=== PATIENT | female | born 1940 | race Caucasian/White ===

== ENCOUNTER 2020-12-10 13:02 | Inpatient (IN) ==
[2020-12-10] MEDS ORDERED: Ipratropium/Albuterol Neb 3 ML ONE ×2 (13:06)
[2020-12-10] MEDS ORDERED: methylPREDNISolone 125 MG/2 ML VIAL IVP ONE (13:12)
[2020-12-10] MEDS ORDERED: Ipratropium/Albuterol Neb 3 ML IH ONE (13:12)
[2020-12-10] MEDS ORDERED: levoFLOXacin 750 MG/150 ML 750 MG/150 ML BAG IVPB ONE (13:12)
[2020-12-10 13:41] LABS: Basophils # 0.1 K/mcL (0.0-0.2); Basophils % 0.7 %; Eosinophils % 0.1 %; Hematocrit 38.9 % (35.3-44.9); Hemoglobin 12.1 g/dL (11.5-15.4); Immature Granulocytes % 0.3 % (0-4); Lymphocytes # 0.9 K/mcL (0.6-4.6); Mean Corpuscular HGB Conc 31.1 g/dL (31.6-35.5); Mean Corpuscular Hemoglobin 24.5 pg (28.0-33.3); Mean Corpuscular Volume 78.7 fL (83.0-100.0); Mean Platelet Volume 8.5 fL (9.4-12.4); Monocytes % 14.1 %; Neutrophils # 4.8 K/mcL (1.6-8.9); Platelet Count 480 K/mcL (140-400); Red Blood Count 4.94 M/mcL (3.82-4.97); Red Cell Distribution Width 14.8 % (11.5-14.5); Segmented Neutrophils % 70.8 %; White Blood Count 6.7 K/mcL (4.3-11.1)
[2020-12-10 13:44] LABS: ABG Base Excess 9 mEq/L (-2 to 3); ABG HCO3 38 mEq/L (21-27); ABG Oxygen Saturation 100 % (95-98); ABG PCO2 74 mmHg (35-45); ABG PH 7.32 pH Units (7.32-7.45); ABG PO2 494 mmHg (85-104); ABG TCO2 40 mEq/L (20-26); Blood Gas VT 276 cc
[2020-12-10 13:53] LABS: INR 1.1; Prothrombin Time 13.1 Seconds (9.4-12.1)
[2020-12-10 14:14] LABS: Alanine Aminotransferase 15 Units/L (7-52); Albumin 3.5 g/dL (3.5-5.7); Albumin/Globulin Ratio 1.8 (1.1-2.2); Alkaline Phosphatase 83 Units/L (34-104); Aspartate Amino Transferase 19 Units/L (13-39); BUN/Creatinine Ratio 19 (6-26); Bilirubin,Direct 0.1 mg/dL (0.0-0.2); Bilirubin,Indirect 0.4 mg/dL (0.0-1.0); Bilirubin,Total 0.5 mg/dL (0.3-1.0); Blood Urea Nitrogen 13 mg/dL (8-23); Calcium 8.5 mg/dL (8.6-10.3); Carbon Dioxide 34 mEq/L (23-29); Chloride 81 mEq/L (98-107); Glucose 136 mg/dL (70-105); Osmolality,Calculated 254 (280-300); Potassium 4.4 mEq/L (3.5-5.1); Sodium 121 mEq/L (136-145); Total Protein 5.5 g/dL (6.4-8.9); Troponin I 0.04 ng/mL (< 0.04); eGFR For African Americans > 60 (> 60); eGFR For Non-African Americans > 60 (> 60)
[2020-12-10] MEDS ORDERED: Furosemide 40 MG/4 ML VIAL IVP ONE (16:26)
[2020-12-10 16:55] LABS: ABG Base Excess 9 mEq/L (-2 to 3); ABG HCO3 38 mEq/L (21-27); ABG Oxygen Saturation 100 % (95-98); ABG PCO2 74 mmHg (35-45); ABG PH 7.32 pH Units (7.32-7.45); ABG PO2 482 mmHg (85-104); ABG TCO2 40 mEq/L (20-26); Blood Gas VT 335 cc
[2020-12-10] MEDS ORDERED: MOM Conc 10 ML UD.LIQ PO PRN (17:11)
[2020-12-10] MEDS ORDERED: Acetaminophen 325 MG TABLET PO PRN (17:11)
[2020-12-10] MEDS ORDERED: Mag Hydrox/Al Hydrox/Simeth 30 ML UDC PO PRN (17:11)
[2020-12-10] MEDS ORDERED: Dextrose Gel 15 GM/37.5 ML TUBE PO PRN ×2 (17:11)
[2020-12-10] MEDS ORDERED: D5% in Water 1,000 ML IVC PRN (17:11)
[2020-12-10] MEDS ORDERED: Ondansetron 4 MG/2 ML VIAL IVP PRN (17:11)
[2020-12-10] MEDS ORDERED: Albuterol 2.5 MG/3 ML NEBULIZER IH PRN (17:11)
[2020-12-10] MEDS ORDERED: Naloxone 0.4 MG/ML INJ IVP PRN (17:11)
[2020-12-10] MEDS ORDERED: *HR* Dextrose 50 % in Water (Vial) 50 ML VIAL IVP PRN (17:11)
[2020-12-10 17:41] LABS: Bilirubin,Urine Negative (Negative); Blood,Urine Negative (Negative); Clarity,Urine Clear (Clear); Color,Urine Light-Yellow (Yellow); Glucose,Urine (UA) Normal (Normal); Ketones,Urine Negative (Negative); Leukocyte Esterase,Urine Negative (Negative); Nitrite,Urine Negative (Negative); PH,Urine 6.5 pH Units (5.0-8.0); Protein,Urine Trace mg/dL (Neg-Trace); Specific Gravity,Urine 1.015 (1.010-1.025); Urobilinogen,Urine Normal (Normal)
[2020-12-10] MEDS ORDERED: Insulin LISPRO 300 UNITS/3 ML VIAL SUBQ SCH (18:00)
[2020-12-10] MEDS: MethylPREDNISolone 40 MG/ML VIAL IVP SCH ×2 (20:05→23:48)
[2020-12-10] MEDS: Mirtazapine 15 MG TABLET PO SCH (20:08)
[2020-12-10 21:41] LABS: BUN/Creatinine Ratio 19 (6-26); Blood Urea Nitrogen 12 mg/dL (8-23); Calcium 8.6 mg/dL (8.6-10.3); Carbon Dioxide 34 mEq/L (23-29); Chloride 82 mEq/L (98-107); Glucose 175 mg/dL (70-105); Osmolality,Calculated 258 (280-300); Potassium 4.4 mEq/L (3.5-5.1); Sodium 122 mEq/L (136-145); eGFR For African Americans > 60 (> 60); eGFR For Non-African Americans > 60 (> 60)
[2020-12-10] MEDS: Ipratropium/Albuterol Neb 3 ML IH SCH (22:31)
[2020-12-10] MEDS: Budesonide/Formoterol 160/4.5 1 PUFF INH IH SCH (22:31)
[2020-12-11 03:22] LABS: Hematocrit 38.4 % (35.3-44.9); Mean Corpuscular HGB Conc 31.3 g/dL (31.6-35.5); Mean Corpuscular Hemoglobin 24.7 pg (28.0-33.3); Mean Platelet Volume 8.7 fL (9.4-12.4); Platelet Count 408 K/mcL (140-400); Red Blood Count 4.86 M/mcL (3.82-4.97); Red Cell Distribution Width 14.8 % (11.5-14.5)
[2020-12-11 03:24] LABS: White Blood Count 2.9 K/mcL (4.3-11.1)
[2020-12-11 03:36] LABS: BUN/Creatinine Ratio 20 (6-26); Blood Urea Nitrogen 14 mg/dL (8-23); Calcium 8.5 mg/dL (8.6-10.3); Carbon Dioxide 34 mEq/L (23-29); Chloride 83 mEq/L (98-107); Glucose 264 mg/dL (70-105); Magnesium 1.3 mg/dL (1.6-2.6); Osmolality,Calculated 266 (280-300); Potassium 4.5 mEq/L (3.5-5.1); Sodium 123 mEq/L (136-145); eGFR For African Americans > 60 (> 60); eGFR For Non-African Americans > 60 (> 60)
[2020-12-11] MEDS: Ipratropium/Albuterol Neb 3 ML IH SCH ×4 (04:56→23:27)
[2020-12-11 05:08] LABS: ABG Base Excess 11 mEq/L (-2 to 3); ABG HCO3 39 mEq/L (21-27); ABG Oxygen Saturation 81 % (95-98); ABG PCO2 69 mmHg (35-45); ABG PH 7.36 pH Units (7.32-7.45); ABG PO2 49 mmHg (85-104); ABG TCO2 41 mEq/L (20-26)
[2020-12-11] MEDS: *HR* Enoxaparin 40 MG/0.4 ML SYRINGE SQ SCH (05:32)
[2020-12-11] MEDS: MethylPREDNISolone 40 MG/ML VIAL IVP SCH ×3 (05:32→17:27)
[2020-12-11] MEDS ORDERED: Furosemide 40 MG/4 ML VIAL IVP ONE (08:07)
[2020-12-11] MEDS ORDERED: levoFLOXacin 750 MG/150 ML 750 MG/150 ML BAG IVPB SCH (09:00)
[2020-12-11] MEDS: amLODIPine 5 MG TABLET PO SCH (10:01)
[2020-12-11] MEDS: lisinopriL 20 MG TABLET PO SCH (10:01)
[2020-12-11] MEDS: Insulin LISPRO 300 UNITS/3 ML VIAL SUBQ SCH ×4 (10:02→20:43)
[2020-12-11] MEDS: Budesonide/Formoterol 160/4.5 1 PUFF INH IH SCH ×2 (10:42→23:27)
[2020-12-11] MEDS: Mirtazapine 15 MG TABLET PO SCH (20:42)
[2020-12-12] MEDS: MethylPREDNISolone 40 MG/ML VIAL IVP SCH ×4 (00:20→18:29)
[2020-12-12] MEDS ORDERED: *HR* LORazepam 0.5 MG TABLET PO ONE (01:27)
[2020-12-12 02:49] LABS: ABG Base Excess 11 mEq/L (-2 to 3); ABG HCO3 38 mEq/L (21-27); ABG Oxygen Saturation 92 % (95-98); ABG PCO2 59 mmHg (35-45); ABG PH 7.41 pH Units (7.32-7.45); ABG PO2 64 mmHg (85-104); ABG TCO2 40 mEq/L (20-26)
[2020-12-12] MEDS ORDERED: *HR* LORazepam 2 MG/ML VIAL IVP ONE (03:03)
[2020-12-12] MEDS: Ipratropium/Albuterol Neb 3 ML IH SCH ×4 (04:07→22:28)
[2020-12-12 04:14] LABS: Hematocrit 37.8 % (35.3-44.9); Hemoglobin 11.7 g/dL (11.5-15.4); Mean Corpuscular Hemoglobin 24.7 pg (28.0-33.3); Mean Corpuscular Volume 79.9 fL (83.0-100.0); Platelet Count 450 K/mcL (140-400); Red Blood Count 4.73 M/mcL (3.82-4.97); Red Cell Distribution Width 15.1 % (11.5-14.5)
[2020-12-12 04:16] LABS: White Blood Count 9.7 K/mcL (4.3-11.1)
[2020-12-12 04:33] LABS: BUN/Creatinine Ratio 31 (6-26); Blood Urea Nitrogen 22 mg/dL (8-23); Calcium 8.6 mg/dL (8.6-10.3); Carbon Dioxide 37 mEq/L (23-29); Chloride 84 mEq/L (98-107); Glucose 200 mg/dL (70-105); Magnesium 1.8 mg/dL (1.6-2.6); Osmolality,Calculated 271 (280-300); Potassium 4.8 mEq/L (3.5-5.1); Sodium 126 mEq/L (136-145); eGFR For African Americans > 60 (> 60); eGFR For Non-African Americans > 60 (> 60)
[2020-12-12] MEDS: *HR* Enoxaparin 40 MG/0.4 ML SYRINGE SQ SCH (05:14)
[2020-12-12] MEDS: Insulin LISPRO 300 UNITS/3 ML VIAL SUBQ SCH ×4 (08:45→20:29)
[2020-12-12] MEDS: amLODIPine 5 MG TABLET PO SCH (08:45)
[2020-12-12] MEDS: lisinopriL 20 MG TABLET PO SCH (08:46)
[2020-12-12] MEDS: Budesonide/Formoterol 160/4.5 1 PUFF INH IH SCH ×2 (10:32→22:28)
[2020-12-12] MEDS ORDERED: levoFLOXacin 750 MG/150 ML 750 MG/150 ML BAG IVPB SCH (13:00)
[2020-12-12] MEDS: Mirtazapine 15 MG TABLET PO SCH (20:29)
[2020-12-12] MEDS: Insulin DETEMIR 100 UNIT/ML X5UNITS SUBQ SCH (20:29)
[2020-12-13] MEDS: Ipratropium/Albuterol Neb 3 ML IH SCH ×4 (04:30→22:10)
[2020-12-13] MEDS: *HR* Enoxaparin 40 MG/0.4 ML SYRINGE SQ SCH (05:24)
[2020-12-13] MEDS: MethylPREDNISolone 40 MG/ML VIAL IVP SCH ×2 (05:25→17:08)
[2020-12-13] MEDS: amLODIPine 5 MG TABLET PO SCH (09:48)
[2020-12-13] MEDS: lisinopriL 20 MG TABLET PO SCH (09:48)
[2020-12-13] MEDS: Insulin LISPRO 300 UNITS/3 ML VIAL SUBQ SCH ×4 (09:48→21:25)
[2020-12-13] MEDS: Budesonide/Formoterol 160/4.5 1 PUFF INH IH SCH ×2 (10:00→22:10)
[2020-12-13] MEDS: Mirtazapine 15 MG TABLET PO SCH (21:24)
[2020-12-13] MEDS: Insulin DETEMIR 100 UNIT/ML X5UNITS SUBQ SCH (21:26)
[2020-12-14] MEDS: Ipratropium/Albuterol Neb 3 ML IH SCH ×4 (04:19→22:13)
[2020-12-14] MEDS: *HR* Enoxaparin 40 MG/0.4 ML SYRINGE SQ SCH (05:32)
[2020-12-14 05:36] LABS: Hematocrit 39.7 % (35.3-44.9); Hemoglobin 11.8 g/dL (11.5-15.4); Mean Corpuscular HGB Conc 29.7 g/dL (31.6-35.5); Mean Corpuscular Hemoglobin 23.8 pg (28.0-33.3); Mean Platelet Volume 8.5 fL (9.4-12.4); Platelet Count 424 K/mcL (140-400); Red Blood Count 4.96 M/mcL (3.82-4.97); Red Cell Distribution Width 15.7 % (11.5-14.5)
[2020-12-14 05:54] LABS: BUN/Creatinine Ratio 37 (6-26); Blood Urea Nitrogen 28 mg/dL (8-23); Calcium 8.8 mg/dL (8.6-10.3); Carbon Dioxide 36 mEq/L (23-29); Chloride 83 mEq/L (98-107); Glucose 276 mg/dL (70-105); Magnesium 1.7 mg/dL (1.6-2.6); Osmolality,Calculated 271 (280-300); Sodium 123 mEq/L (136-145); eGFR For African Americans > 60 (> 60); eGFR For Non-African Americans > 60 (> 60)
[2020-12-14] MEDS: predniSONE 20 MG TABLET PO SCH (07:33)
[2020-12-14] MEDS: amLODIPine 5 MG TABLET PO SCH (07:33)
[2020-12-14] MEDS: Insulin LISPRO 300 UNITS/3 ML VIAL SUBQ SCH ×4 (07:34→20:07)
[2020-12-14] MEDS: lisinopriL 20 MG TABLET PO SCH (07:34)
[2020-12-14] MEDS: Budesonide/Formoterol 160/4.5 1 PUFF INH IH SCH ×2 (07:52→22:13)
[2020-12-14] MEDS ORDERED: levoFLOXacin 750 MG TABLET PO ONE (13:00)
[2020-12-14] MEDS ORDERED: *HR* LORazepam 2 MG/ML VIAL IVP ONE (13:58)
[2020-12-14 14:55] LABS: ABG Base Excess 12 mEq/L (-2 to 3); ABG HCO3 40 mEq/L (21-27); ABG Oxygen Saturation 88 % (95-98); ABG PCO2 62 mmHg (35-45); ABG PH 7.41 pH Units (7.32-7.45); ABG PO2 55 mmHg (85-104); ABG TCO2 42 mEq/L (20-26)
[2020-12-14] MEDS: Mirtazapine 15 MG TABLET PO SCH (20:07)
[2020-12-14] MEDS: Insulin DETEMIR 100 UNIT/ML X5UNITS SUBQ SCH (20:07)
[2020-12-14] MEDS: *HR* LORazepam 2 MG/ML VIAL IVP PRN (22:26)
[2020-12-15] MEDS: Ipratropium/Albuterol Neb 3 ML IH SCH ×3 (03:27→15:43)
[2020-12-15] MEDS: *HR* Enoxaparin 40 MG/0.4 ML SYRINGE SQ SCH (05:36)
[2020-12-15 06:43] LABS: Hematocrit 40.1 % (35.3-44.9); Mean Corpuscular HGB Conc 29.9 g/dL (31.6-35.5); Mean Corpuscular Hemoglobin 23.6 pg (28.0-33.3); Mean Corpuscular Volume 78.9 fL (83.0-100.0); Mean Platelet Volume 8.5 fL (9.4-12.4); Platelet Count 409 K/mcL (140-400); Red Blood Count 5.08 M/mcL (3.82-4.97); Red Cell Distribution Width 15.5 % (11.5-14.5); White Blood Count 9.8 K/mcL (4.3-11.1)
[2020-12-15 07:05] LABS: BUN/Creatinine Ratio 30 (6-26); Blood Urea Nitrogen 22 mg/dL (8-23); Calcium 8.7 mg/dL (8.6-10.3); Carbon Dioxide 38 mEq/L (23-29); Chloride 88 mEq/L (98-107); Glucose 102 mg/dL (70-105); Osmolality,Calculated 272 (280-300); Potassium 4.5 mEq/L (3.5-5.1); Sodium 129 mEq/L (136-145); eGFR For African Americans > 60 (> 60); eGFR For Non-African Americans > 60 (> 60)
[2020-12-15] MEDS: Insulin LISPRO 300 UNITS/3 ML VIAL SUBQ SCH ×3 (08:35→16:34)
[2020-12-15] MEDS: predniSONE 20 MG TABLET PO SCH (08:39)
[2020-12-15] MEDS: lisinopriL 20 MG TABLET PO SCH (08:39)
[2020-12-15] MEDS: amLODIPine 5 MG TABLET PO SCH (08:39)
[2020-12-15] MEDS: Furosemide 20 MG TABLET PO SCH ×3 (08:39→17:27)
[2020-12-15] MEDS: Budesonide/Formoterol 160/4.5 1 PUFF INH IH SCH (10:27)
[2020-12-15 16:31] VITALS: BP 122/56
[2020-12-15 16:51] LABS: Influenza A PCR Negative (Negative); Influenza B PCR Negative (Negative); Resp. Syncytial Virus PCR Negative (Negative)
[2020-12-15 16:52] LABS: SARS-CoV-2 by PCR (In House) Negative (Negative)
[2020-12-15] MEDS: *HR* LORazepam 2 MG/ML VIAL IVP PRN (17:27)
== END 2020-12-15 18:00 | DRG 291 ==
LOC: 2ANU 13:02 → EMEROOARM 13:02 → SUATTDRO 17:52 → 2ANU 19:25
PROVIDERS: ADMIT Internal Medicine; ATTEND Internal Medicine

== ENCOUNTER 2021-01-03 11:10 | Observation (INO) ==
[2021-01-03 12:07] LABS: BUN/Creatinine Ratio 17 (6-26); Blood Urea Nitrogen 12 mg/dL (8-23); Calcium 9.3 mg/dL (8.6-10.3); Carbon Dioxide 34 mEq/L (23-29); Chloride 93 mEq/L (98-107); Glucose 106 mg/dL (70-105); Osmolality,Calculated 276 (280-300); Potassium 3.8 mEq/L (3.5-5.1); Sodium 133 mEq/L (136-145); eGFR For African Americans > 60 (> 60); eGFR For Non-African Americans > 60 (> 60)
[2021-01-03 12:14] LABS: Troponin I 0.06 ng/mL (< 0.04)
[2021-01-03] MEDS ORDERED: Aspirin 325 MG TABLET PO ONE (12:22)
[2021-01-03] MEDS ORDERED: Furosemide 40 MG/4 ML VIAL IVP ONE (12:22)
[2021-01-03 12:30] LABS: Basophils % 0.8 %; Eosinophils # 0.2 K/mcL (0.0-0.6); Eosinophils % 3.1 %; Hematocrit 36.3 % (35.3-44.9); Hemoglobin 11.1 g/dL (11.5-15.4); Immature Granulocytes % 0.2 % (0-4); Lymphocytes % 19.6 %; Mean Corpuscular HGB Conc 30.6 g/dL (31.6-35.5); Mean Corpuscular Hemoglobin 24.3 pg (28.0-33.3); Mean Corpuscular Volume 79.4 fL (83.0-100.0); Mean Platelet Volume 8.9 fL (9.4-12.4); Monocytes # 0.5 K/mcL (0.0-1.3); Monocytes % 10.6 %; Neutrophils # 3.3 K/mcL (1.6-8.9); Platelet Count 336 K/mcL (140-400); Red Blood Count 4.57 M/mcL (3.82-4.97); Red Cell Distribution Width 18.9 % (11.5-14.5); Segmented Neutrophils % 65.7 %; White Blood Count 5.1 K/mcL (4.3-11.1)
[2021-01-03] MEDS ORDERED: *HR* LORazepam 0.5 MG TABLET PO PRN (13:38)
[2021-01-03] MEDS ORDERED: Albuterol 2.5 MG/3 ML NEBULIZER IH PRN (13:41)
[2021-01-03] MEDS ORDERED: Acetaminophen 325 MG TABLET PO PRN (13:44)
[2021-01-03] MEDS ORDERED: D5% in Water 1,000 ML IVC PRN (13:44)
[2021-01-03] MEDS ORDERED: Dextrose Gel 15 GM/37.5 ML TUBE PO PRN ×2 (13:44)
[2021-01-03] MEDS ORDERED: *HR* Dextrose 50 % in Water (Vial) 50 ML VIAL IVP PRN (13:44)
[2021-01-03] MEDS ORDERED: Naloxone 0.4 MG/ML INJ IVP PRN (13:44)
[2021-01-03] MEDS: Insulin LISPRO 300 UNITS/3 ML VIAL SUBQ SCH ×2 (16:50→19:55)
[2021-01-03] MEDS: *HR* Heparin 5,000 UNIT/ML VIAL SQ SCH (18:10)
[2021-01-03 18:51] LABS: Adenovirus Not Detected (Not Detect); Bordetella Pertussis Not Detected (Not Detect); Chlamydophila pneumoniae Not Detected (Not Detect); Coronavirus 229E Not Detected (Not Detect); Coronavirus HKU1 Not Detected (Not Detect); Coronavirus NL63 Not Detected (Not Detect); Coronavirus OC43 Not Detected (Not Detect); Human Metapneumovirus Not Detected (Not Detect); Human Rhinovirus/Enterovirus Not Detected (Not Detect); Influenza A Subtype 2009 H1 Not Detected (Not Detect); Influenza B Not Detected (Not Detect); Mycoplasma pneumoniae Not Detected (Not Detect); Parainfluenza Virus 1 Not Detected (Not Detect); Parainfluenza Virus 2 Not Detected (Not Detect); Parainfluenza Virus 3 Not Detected (Not Detect); Parainfluenza Virus 4 Not Detected (Not Detect); Respiratory Syncytial Virus Not Detected (Not Detect); SARS-CoV-2 Not Detected (Not Detect)
[2021-01-03] MEDS: Mirtazapine 15 MG TABLET PO SCH (20:21)
[2021-01-03] MEDS: Budesonide/Formoterol 160/4.5 1 PUFF INH IH SCH (20:32)
[2021-01-03] MEDS ORDERED: Insulin DETEMIR 100 UNIT/ML X5UNITS SUBQ SCH (21:00)
[2021-01-04 02:48] LABS: Basophils # 0.1 K/mcL (0.0-0.2); Basophils % 1.3 %; Eosinophils # 0.2 K/mcL (0.0-0.6); Eosinophils % 2.9 %; Hematocrit 36.7 % (35.3-44.9); Hemoglobin 11.1 g/dL (11.5-15.4); Immature Granulocytes % 0.2 % (0-4); Lymphocytes # 1.1 K/mcL (0.6-4.6); Lymphocytes % 21.7 %; Mean Corpuscular HGB Conc 30.2 g/dL (31.6-35.5); Mean Corpuscular Hemoglobin 24.1 pg (28.0-33.3); Mean Corpuscular Volume 79.8 fL (83.0-100.0); Mean Platelet Volume 9.7 fL (9.4-12.4); Monocytes # 0.7 K/mcL (0.0-1.3); Monocytes % 13.1 %; Neutrophils # 3.2 K/mcL (1.6-8.9); Platelet Count 395 K/mcL (140-400); Red Cell Distribution Width 18.8 % (11.5-14.5); Segmented Neutrophils % 60.8 %; White Blood Count 5.3 K/mcL (4.3-11.1)
[2021-01-04 03:09] LABS: BUN/Creatinine Ratio 19 (6-26); Blood Urea Nitrogen 15 mg/dL (8-23); Calcium 9.1 mg/dL (8.6-10.3); Carbon Dioxide 36 mEq/L (23-29); Chloride 95 mEq/L (98-107); Glucose 36 mg/dL (70-105); Osmolality,Calculated 281 (280-300); Sodium 137 mEq/L (136-145); eGFR For African Americans > 60 (> 60); eGFR For Non-African Americans > 60 (> 60)
[2021-01-04] MEDS: *HR* Heparin 5,000 UNIT/ML VIAL SQ SCH ×2 (05:32→17:30)
[2021-01-04] MEDS ORDERED: Furosemide 40 MG/4 ML VIAL IVP SCH (09:00)
[2021-01-04] MEDS: Insulin LISPRO 300 UNITS/3 ML VIAL SUBQ SCH ×4 (09:38→20:20)
[2021-01-04] MEDS: Budesonide/Formoterol 160/4.5 1 PUFF INH IH SCH ×2 (09:40→21:36)
[2021-01-04] MEDS: lisinopriL 20 MG TABLET PO SCH (09:46)
[2021-01-04] MEDS: Aspirin 81 MG TAB.CHEW PO SCH (09:47)
[2021-01-04] MEDS: amLODIPine 5 MG TABLET PO SCH (09:47)
[2021-01-04] MEDS: Furosemide 40 MG/4 ML VIAL IVP SCH ×2 (12:01→16:59)
[2021-01-04] MEDS: Mirtazapine 15 MG TABLET PO SCH (20:20)
[2021-01-05 04:05] LABS: Basophils % 0.9 %; Eosinophils # 0.1 K/mcL (0.0-0.6); Eosinophils % 2.8 %; Hematocrit 33.9 % (35.3-44.9); Hemoglobin 10.4 g/dL (11.5-15.4); Lymphocytes # 1.3 K/mcL (0.6-4.6); Lymphocytes % 31.2 %; Mean Corpuscular HGB Conc 30.7 g/dL (31.6-35.5); Mean Corpuscular Hemoglobin 24.1 pg (28.0-33.3); Mean Corpuscular Volume 78.5 fL (83.0-100.0); Mean Platelet Volume 9.8 fL (9.4-12.4); Monocytes # 0.7 K/mcL (0.0-1.3); Monocytes % 15.6 %; Neutrophils # 2.1 K/mcL (1.6-8.9); Platelet Count 384 K/mcL (140-400); Red Blood Count 4.32 M/mcL (3.82-4.97); Red Cell Distribution Width 18.8 % (11.5-14.5); Segmented Neutrophils % 49.5 %; White Blood Count 4.3 K/mcL (4.3-11.1)
[2021-01-05 04:24] LABS: BUN/Creatinine Ratio 22 (6-26); Blood Urea Nitrogen 20 mg/dL (8-23); Calcium 8.8 mg/dL (8.6-10.3); Carbon Dioxide 34 mEq/L (23-29); Chloride 97 mEq/L (98-107); Glucose 119 mg/dL (70-105); Magnesium 1.8 mg/dL (1.6-2.6); Osmolality,Calculated 288 (280-300); Phosphorous 4.1 mg/dL (2.7-4.5); Potassium 3.5 mEq/L (3.5-5.1); Sodium 137 mEq/L (136-145); eGFR For African Americans > 60 (> 60); eGFR For Non-African Americans > 60 (> 60)
[2021-01-05] MEDS: *HR* Heparin 5,000 UNIT/ML VIAL SQ SCH ×2 (05:03→17:33)
[2021-01-05] MEDS: Insulin LISPRO 300 UNITS/3 ML VIAL SUBQ SCH ×4 (07:43→20:55)
[2021-01-05] MEDS: Furosemide 40 MG/4 ML VIAL IVP SCH ×2 (07:54→17:35)
[2021-01-05] MEDS: lisinopriL 20 MG TABLET PO SCH (07:54)
[2021-01-05] MEDS: Aspirin 81 MG TAB.CHEW PO SCH (07:54)
[2021-01-05] MEDS: amLODIPine 5 MG TABLET PO SCH (07:54)
[2021-01-05] MEDS: Budesonide/Formoterol 160/4.5 1 PUFF INH IH SCH ×2 (08:16→22:26)
[2021-01-05] MEDS ORDERED: Ipratropium/Albuterol Neb 3 ML IH PRN (09:01)
[2021-01-05] MEDS ORDERED: Albuterol 2.5 MG/3 ML NEBULIZER IH PRN (09:01)
[2021-01-05] MEDS: Mirtazapine 15 MG TABLET PO SCH (21:06)
[2021-01-06] MEDS: *HR* Heparin 5,000 UNIT/ML VIAL SQ SCH ×2 (06:48→17:45)
[2021-01-06] MEDS: Furosemide 40 MG TABLET PO SCH ×3 (08:13→17:44)
[2021-01-06] MEDS: Insulin LISPRO 300 UNITS/3 ML VIAL SUBQ SCH ×4 (08:15→21:52)
[2021-01-06] MEDS: lisinopriL 20 MG TABLET PO SCH (08:40)
[2021-01-06] MEDS: Aspirin 81 MG TAB.CHEW PO SCH (08:41)
[2021-01-06] MEDS: amLODIPine 5 MG TABLET PO SCH (08:42)
[2021-01-06] MEDS: Tiotropium 10 INH DOSE IH SCH (10:01)
[2021-01-06] MEDS: Budesonide/Formoterol 160/4.5 1 PUFF INH IH SCH ×2 (10:01→19:53)
[2021-01-06] MEDS: Mirtazapine 15 MG TABLET PO SCH (21:54)
[2021-01-07 05:08] LABS: Basophils # 0.1 K/mcL (0.0-0.2); Basophils % 0.9 %; Eosinophils # 0.2 K/mcL (0.0-0.6); Eosinophils % 2.7 %; Hemoglobin 11.2 g/dL (11.5-15.4); Immature Granulocytes % 0.2 % (0-4); Lymphocytes # 0.9 K/mcL (0.6-4.6); Lymphocytes % 16.5 %; Mean Corpuscular HGB Conc 30.3 g/dL (31.6-35.5); Mean Corpuscular Hemoglobin 23.6 pg (28.0-33.3); Mean Corpuscular Volume 78.1 fL (83.0-100.0); Mean Platelet Volume 9.6 fL (9.4-12.4); Monocytes # 0.7 K/mcL (0.0-1.3); Monocytes % 13.3 %; Neutrophils # 3.7 K/mcL (1.6-8.9); Platelet Count 395 K/mcL (140-400); Red Blood Count 4.74 M/mcL (3.82-4.97); Red Cell Distribution Width 19.6 % (11.5-14.5); Segmented Neutrophils % 66.4 %; White Blood Count 5.6 K/mcL (4.3-11.1)
[2021-01-07 05:28] LABS: BUN/Creatinine Ratio 25 (6-26); Blood Urea Nitrogen 20 mg/dL (8-23); Calcium 8.8 mg/dL (8.6-10.3); Carbon Dioxide 34 mEq/L (23-29); Chloride 97 mEq/L (98-107); Glucose 134 mg/dL (70-105); Magnesium 1.8 mg/dL (1.6-2.6); Osmolality,Calculated 291 (280-300); Potassium 3.3 mEq/L (3.5-5.1); Sodium 138 mEq/L (136-145); eGFR For African Americans > 60 (> 60); eGFR For Non-African Americans > 60 (> 60)
[2021-01-07] MEDS: *HR* Heparin 5,000 UNIT/ML VIAL SQ SCH (06:18)
[2021-01-07] MEDS: Insulin LISPRO 300 UNITS/3 ML VIAL SUBQ SCH ×2 (08:16→12:11)
[2021-01-07] MEDS: Aspirin 81 MG TAB.CHEW PO SCH (08:23)
[2021-01-07] MEDS: amLODIPine 5 MG TABLET PO SCH (08:24)
[2021-01-07] MEDS: lisinopriL 20 MG TABLET PO SCH (08:27)
[2021-01-07] MEDS: Furosemide 40 MG TABLET PO SCH (08:27)
[2021-01-07] MEDS: Potassium Chloride Elixir 20 MEQ/15 ML UDC PO SCH ×2 (08:35→12:06)
[2021-01-07] MEDS: Tiotropium 10 INH DOSE IH SCH (10:39)
[2021-01-07] MEDS: Budesonide/Formoterol 160/4.5 1 PUFF INH IH SCH (10:39)
[2021-01-07 15:09] VITALS: BP 138/54
== END 2021-01-07 17:45 | disposition home health service (06) ==
LOC: EMEROOARM 11:10 → 3ANU 11:10 → SUATTDRO 13:09 → 3ANU 14:05
PROVIDERS: ADMIT Internal Medicine; ATTEND Internal Medicine

== ENCOUNTER 2021-02-15 13:48 | Inpatient (IN) ==
[2021-02-15] MEDS ORDERED: Doxycycline 100 MG in 0.9 % Sodium Chloride Mini Bag 100 ML IVPB STA (15:48)
[2021-02-15 16:01] LABS: Hemoglobin 11.2 g/dL (11.5-15.4); Mean Corpuscular Hemoglobin 24.8 pg (28.0-33.3); Red Blood Count 4.51 M/mcL (3.82-4.97); Red Cell Distribution Width 21.3 % (11.5-14.5)
[2021-02-15 16:03] LABS: Hematocrit 35.7 % (35.3-44.9); Mean Corpuscular HGB Conc 31.4 g/dL (31.6-35.5); Mean Corpuscular Volume 79.2 fL (83.0-100.0); Mean Platelet Volume 9.2 fL (9.4-12.4); Platelet Count 276 K/mcL (140-400); White Blood Count 27.8 K/mcL (4.3-11.1)
[2021-02-15 16:16] LABS: BUN/Creatinine Ratio 26 (6-26); Blood Urea Nitrogen 22 mg/dL (8-23); Calcium 8.6 mg/dL (8.6-10.3); Carbon Dioxide 31 mEq/L (23-29); Chloride 88 mEq/L (98-107); Glucose 317 mg/dL (70-105); Osmolality,Calculated 279 (280-300); Potassium 3.6 mEq/L (3.5-5.1); Sodium 127 mEq/L (136-145); eGFR For African Americans > 60 (> 60); eGFR For Non-African Americans > 60 (> 60)
[2021-02-15 16:41] LABS: Lymphocytes # 0.6 K/mcL (0.6-4.6); Monocytes # 0.6 K/mcL (0.0-1.3); Neutrophils # 26.7 K/mcL (1.6-8.9)
[2021-02-15 16:42] LABS: Anisocytosis 1+ (Not Present); Large Platelets Present (Not Present); Platelet Estimate Normal (Normal)
[2021-02-15] MEDS ORDERED: Naloxone 0.4 MG/ML INJ IVP PRN (16:59)
[2021-02-15] MEDS ORDERED: Ondansetron 4 MG/2 ML VIAL IVP PRN (16:59)
[2021-02-15] MEDS ORDERED: MOM Conc 10 ML UD.LIQ PO PRN (16:59)
[2021-02-15] MEDS ORDERED: Dextrose Gel 15 GM/37.5 ML TUBE PO PRN ×2 (17:06)
[2021-02-15] MEDS ORDERED: *HR* Dextrose 50 % in Water (Vial) 50 ML VIAL IVP PRN (17:06)
[2021-02-15] MEDS ORDERED: D5% in Water 1,000 ML IVC PRN (17:06)
[2021-02-15] MEDS ORDERED: Ipratropium/Albuterol Neb 3 ML IH PRN (17:07)
[2021-02-15] MEDS: Budesonide/Formoterol 160/4.5 1 PUFF INH IH SCH (19:50)
[2021-02-15] MEDS: Mirtazapine 15 MG TABLET PO SCH (22:13)
[2021-02-15] MEDS: Piperacillin/Tazobactam 3.375 GM in 0.9 % Sodium Chloride Mini Bag 100 ML IVPB SCH (22:13)
[2021-02-15] MEDS: Insulin LISPRO 300 UNITS/3 ML VIAL SUBQ SCH (22:20)
[2021-02-15] MEDS: Melatonin 3 MG TABLET PO PRN (23:32)
[2021-02-16] MEDS: Piperacillin/Tazobactam 3.375 GM in 0.9 % Sodium Chloride Mini Bag 100 ML IVPB SCH ×3 (02:57→16:50)
[2021-02-16 06:09] LABS: Basophils % 0.1 %; Eosinophils % 0.1 %; Hemoglobin 10.6 g/dL (11.5-15.4); Immature Granulocytes % 1.9 % (0-4); Lymphocytes # 0.2 K/mcL (0.6-4.6); Mean Corpuscular HGB Conc 31.2 g/dL (31.6-35.5); Mean Corpuscular Hemoglobin 24.7 pg (28.0-33.3); Mean Corpuscular Volume 79.1 fL (83.0-100.0); Mean Platelet Volume 9.9 fL (9.4-12.4); Monocytes # 0.7 K/mcL (0.0-1.3); Monocytes % 4.3 %; Neutrophils # 15.9 K/mcL (1.6-8.9); Platelet Count 237 K/mcL (140-400); Red Cell Distribution Width 21.5 % (11.5-14.5); Segmented Neutrophils % 92.6 %; White Blood Count 17.2 K/mcL (4.3-11.1)
[2021-02-16 06:27] LABS: Anisocytosis 1+ (Not Present); Hypochromasia Present (Not Present); Platelet Estimate Normal (Normal)
[2021-02-16 06:33] LABS: BUN/Creatinine Ratio 27 (6-26); Blood Urea Nitrogen 27 mg/dL (8-23); Calcium 8.6 mg/dL (8.6-10.3); Carbon Dioxide 29 mEq/L (23-29); Chloride 92 mEq/L (98-107); Glucose 171 mg/dL (70-105); Magnesium 1.3 mg/dL (1.6-2.6); Osmolality,Calculated 279 (280-300); Phosphorous 2.4 mg/dL (2.7-4.5); Potassium 3.3 mEq/L (3.5-5.1); Sodium 130 mEq/L (136-145); eGFR For African Americans > 60 (> 60); eGFR For Non-African Americans 54 (> 60)
[2021-02-16] MEDS ORDERED: Potassium Chloride Elixir 20 MEQ/15 ML UDC PO ONE (07:49)
[2021-02-16] MEDS: Budesonide/Formoterol 160/4.5 1 PUFF INH IH SCH ×2 (07:56→20:15)
[2021-02-16] MEDS: Tiotropium 10 INH DOSE IH SCH (07:56)
[2021-02-16 09:01] LABS: Estimated Average Glucose 189 mg/dl; Hemoglobin A1C 8.2 %
[2021-02-16] MEDS: Insulin LISPRO 300 UNITS/3 ML VIAL SUBQ SCH ×4 (09:38→20:27)
[2021-02-16] MEDS: predniSONE 20 MG TABLET PO SCH (09:39)
[2021-02-16 18:39] LABS: Bilirubin,Urine Negative (Negative); Blood,Urine Small (Negative); Budding Yeast,Urine Few per hpf (None Seen); Calcium Oxalate Crystals,Urine Present; Clarity,Urine Turbid (Clear); Color,Urine Yellow (Yellow); Glucose,Urine (UA) Normal (Normal); Ketones,Urine Negative (Negative); Leukocyte Esterase,Urine Trace (Negative); Nitrite,Urine Negative (Negative); Protein,Urine 50 mg/dL (Neg-Trace); Specific Gravity,Urine 1.024 (1.010-1.025); Squamous Epithelial Cell,Urine Few per hpf (None-Few); Urobilinogen,Urine Normal (Normal)
[2021-02-16] MEDS: Acetaminophen 325 MG TABLET PO PRN (19:35)
[2021-02-16] MEDS: Mirtazapine 15 MG TABLET PO SCH (20:27)
[2021-02-17] MEDS: Piperacillin/Tazobactam 3.375 GM in 0.9 % Sodium Chloride Mini Bag 100 ML IVPB SCH ×3 (02:16→16:25)
[2021-02-17 06:26] LABS: Basophils % 0.1 %; Eosinophils # 0.1 K/mcL (0.0-0.6); Eosinophils % 0.4 %; Hemoglobin 10.8 g/dL (11.5-15.4); Immature Granulocytes % 0.5 % (0-4); Lymphocytes # 0.4 K/mcL (0.6-4.6); Lymphocytes % 2.5 %; Mean Corpuscular HGB Conc 31.8 g/dL (31.6-35.5); Mean Corpuscular Hemoglobin 24.9 pg (28.0-33.3); Mean Corpuscular Volume 78.5 fL (83.0-100.0); Mean Platelet Volume 9.8 fL (9.4-12.4); Monocytes # 0.9 K/mcL (0.0-1.3); Monocytes % 5.1 %; Neutrophils # 15.8 K/mcL (1.6-8.9); Platelet Count 258 K/mcL (140-400); Red Blood Count 4.33 M/mcL (3.82-4.97); Red Cell Distribution Width 21.5 % (11.5-14.5); Segmented Neutrophils % 91.4 %; White Blood Count 17.3 K/mcL (4.3-11.1)
[2021-02-17 06:51] LABS: BUN/Creatinine Ratio 34 (6-26); Blood Urea Nitrogen 29 mg/dL (8-23); Calcium 8.5 mg/dL (8.6-10.3); Carbon Dioxide 30 mEq/L (23-29); Chloride 94 mEq/L (98-107); Glucose 173 mg/dL (70-105); Osmolality,Calculated 278 (280-300); Sodium 129 mEq/L (136-145); eGFR For African Americans > 60 (> 60); eGFR For Non-African Americans > 60 (> 60)
[2021-02-17 06:52] LABS: Magnesium 1.9 mg/dL (1.6-2.6); Phosphorous 3.7 mg/dL (2.7-4.5)
[2021-02-17 06:56] LABS: Anisocytosis 1+ (Not Present); Poikilocytosis 1+ (Not Present)
[2021-02-17 06:57] LABS: Platelet Estimate Normal (Normal)
[2021-02-17] MEDS: Budesonide/Formoterol 160/4.5 1 PUFF INH IH SCH ×2 (07:25→20:50)
[2021-02-17] MEDS: Tiotropium 10 INH DOSE IH SCH (07:25)
[2021-02-17] MEDS: Insulin LISPRO 300 UNITS/3 ML VIAL SUBQ SCH ×4 (08:14→20:25)
[2021-02-17] MEDS: predniSONE 20 MG TABLET PO SCH (08:14)
[2021-02-17] MEDS: amLODIPine 5 MG TABLET PO SCH (09:00)
[2021-02-17] MEDS: Furosemide 40 MG TABLET PO SCH ×2 (09:01→16:25)
[2021-02-17] MEDS: Clindamycin 600 MG/50 ML 600 MG/50 ML IV.SOLN IVPB SCH ×3 (11:31→23:02)
[2021-02-17] MEDS: *HR* Heparin 5,000 UNIT/ML VIAL SQ SCH (16:25)
[2021-02-17] MEDS: *HR* LORazepam 0.5 MG TABLET PO PRN (17:25)
[2021-02-17] MEDS: Mirtazapine 15 MG TABLET PO SCH (21:33)
[2021-02-17] MEDS: Vancomycin 750 MG in 0.9 % Sodium Chloride Mini Bag 100 ML IVPB SCH (21:34)
[2021-02-18] MEDS: Piperacillin/Tazobactam 3.375 GM in 0.9 % Sodium Chloride Mini Bag 100 ML IVPB SCH (01:42)
[2021-02-18] MEDS: *HR* Heparin 5,000 UNIT/ML VIAL SQ SCH ×2 (05:35→17:32)
[2021-02-18 06:34] LABS: Basophils % 0.2 %; Eosinophils % 0.3 %; Hematocrit 33.6 % (35.3-44.9); Hemoglobin 10.4 g/dL (11.5-15.4); Immature Granulocytes % 0.9 % (0-4); Lymphocytes # 0.7 K/mcL (0.6-4.6); Lymphocytes % 5.8 %; Mean Corpuscular Hemoglobin 24.6 pg (28.0-33.3); Mean Corpuscular Volume 79.4 fL (83.0-100.0); Mean Platelet Volume 9.6 fL (9.4-12.4); Monocytes # 0.9 K/mcL (0.0-1.3); Monocytes % 7.8 %; Neutrophils # 10.1 K/mcL (1.6-8.9); Platelet Count 246 K/mcL (140-400); Red Blood Count 4.23 M/mcL (3.82-4.97); Red Cell Distribution Width 21.4 % (11.5-14.5); White Blood Count 11.8 K/mcL (4.3-11.1)
[2021-02-18 06:39] LABS: BUN/Creatinine Ratio 27 (6-26); Blood Urea Nitrogen 21 mg/dL (8-23); Calcium 7.9 mg/dL (8.6-10.3); Carbon Dioxide 33 mEq/L (23-29); Chloride 95 mEq/L (98-107); Glucose 171 mg/dL (70-105); Magnesium 1.6 mg/dL (1.6-2.6); Osmolality,Calculated 283 (280-300); Phosphorous 3.7 mg/dL (2.7-4.5); Potassium 3.8 mEq/L (3.5-5.1); Sodium 133 mEq/L (136-145); eGFR For African Americans > 60 (> 60); eGFR For Non-African Americans > 60 (> 60)
[2021-02-18] MEDS: *HR* LORazepam 0.5 MG TABLET PO PRN ×2 (07:50→22:54)
[2021-02-18] MEDS: amLODIPine 5 MG TABLET PO SCH (07:51)
[2021-02-18] MEDS: Furosemide 40 MG TABLET PO SCH ×2 (07:51→17:32)
[2021-02-18] MEDS: predniSONE 20 MG TABLET PO SCH (07:51)
[2021-02-18] MEDS: Insulin LISPRO 300 UNITS/3 ML VIAL SUBQ SCH ×4 (07:55→20:07)
[2021-02-18] MEDS: Clindamycin 600 MG/50 ML 600 MG/50 ML IV.SOLN IVPB SCH (07:57)
[2021-02-18] MEDS: Vancomycin 750 MG in 0.9 % Sodium Chloride Mini Bag 100 ML IVPB SCH (07:58)
[2021-02-18] MEDS: Budesonide/Formoterol 160/4.5 1 PUFF INH IH SCH ×2 (10:38→20:17)
[2021-02-18] MEDS: Tiotropium 10 INH DOSE IH SCH (10:40)
[2021-02-18] MEDS: Mirtazapine 15 MG TABLET PO SCH (20:01)
[2021-02-18] MEDS: Melatonin 3 MG TABLET PO PRN (21:32)
[2021-02-19 03:09] LABS: Basophils % 0.2 %; Eosinophils % 0.3 %; Hematocrit 33.8 % (35.3-44.9); Hemoglobin 10.7 g/dL (11.5-15.4); Lymphocytes # 1.1 K/mcL (0.6-4.6); Lymphocytes % 8.9 %; Mean Corpuscular HGB Conc 31.7 g/dL (31.6-35.5); Mean Corpuscular Hemoglobin 24.7 pg (28.0-33.3); Mean Corpuscular Volume 78.1 fL (83.0-100.0); Mean Platelet Volume 9.5 fL (9.4-12.4); Monocytes # 1.2 K/mcL (0.0-1.3); Monocytes % 9.5 %; Neutrophils # 9.9 K/mcL (1.6-8.9); Platelet Count 275 K/mcL (140-400); Red Blood Count 4.33 M/mcL (3.82-4.97); Red Cell Distribution Width 21.2 % (11.5-14.5); Segmented Neutrophils % 80.1 %; White Blood Count 12.4 K/mcL (4.3-11.1)
[2021-02-19] MEDS: *HR* Heparin 5,000 UNIT/ML VIAL SQ SCH (05:13)
[2021-02-19 07:00] VITALS: BP 139/64
[2021-02-19] MEDS: Budesonide/Formoterol 160/4.5 1 PUFF INH IH SCH (07:19)
[2021-02-19] MEDS: Tiotropium 10 INH DOSE IH SCH (07:20)
[2021-02-19] MEDS: amLODIPine 5 MG TABLET PO SCH (08:11)
[2021-02-19] MEDS: Acetaminophen 325 MG TABLET PO PRN (08:11)
[2021-02-19] MEDS: Furosemide 40 MG TABLET PO SCH (08:11)
[2021-02-19] MEDS: predniSONE 20 MG TABLET PO SCH (08:11)
[2021-02-19] MEDS: *HR* LORazepam 0.5 MG TABLET PO PRN (08:12)
[2021-02-19] MEDS: Insulin LISPRO 300 UNITS/3 ML VIAL SUBQ SCH ×2 (08:16→14:21)
== END 2021-02-19 15:37 | disposition home health service (06) | DRG 602 ==
LOC: 3BNU 13:48 → EMEROOARM 13:48 → SUATTDRO 16:47 → 3BNU 17:52 → SUATTDRO 02-16 20:01
PROVIDERS: ADMIT Internal Medicine; ATTEND Internal Medicine

== ENCOUNTER 2021-11-15 17:09 | Observation (INO) ==
[2021-11-15] MEDS ORDERED: Aspirin 81 MG TAB.CHEW PO ONE (17:45)
[2021-11-15] MEDS: Nitroglycerin 0.4 MG TAB.SUBL SL PRN ×2 (18:01→18:21)
[2021-11-15 18:12] LABS: Basophils # 0.1 K/mcL (0.0-0.2); Basophils % 0.9 %; Eosinophils # 0.1 K/mcL (0.0-0.6); Eosinophils % 1.3 %; Hematocrit 33.2 % (35.3-44.9); Hemoglobin 10.2 g/dL (11.5-15.4); Immature Granulocytes % 0.3 % (0-4); Lymphocytes # 1.5 K/mcL (0.6-4.6); Lymphocytes % 21.6 %; Mean Corpuscular HGB Conc 30.7 g/dL (31.6-35.5); Mean Corpuscular Hemoglobin 26.9 pg (28.0-33.3); Mean Corpuscular Volume 87.6 fL (83.0-100.0); Mean Platelet Volume 9.7 fL (9.4-12.4); Monocytes # 0.8 K/mcL (0.0-1.3); Monocytes % 11.8 %; Neutrophils # 4.5 K/mcL (1.6-8.9); Platelet Count 325 K/mcL (140-400); Red Blood Count 3.79 M/mcL (3.82-4.97); Red Cell Distribution Width 13.6 % (11.5-14.5); Segmented Neutrophils % 64.1 %; White Blood Count 7.1 K/mcL (4.3-11.1)
[2021-11-15 18:33] LABS: BUN/Creatinine Ratio 15 (6-26); Blood Urea Nitrogen 15 mg/dL (8-23); Calcium 9.4 mg/dL (8.6-10.3); Carbon Dioxide 32 mEq/L (23-29); Chloride 96 mEq/L (98-107); Glucose 114 mg/dL (70-105); Osmolality,Calculated 284 (280-300); Potassium 3.1 mEq/L (3.5-5.1); Sodium 136 mEq/L (136-145); eGFR For African Americans > 60 (> 60); eGFR For Non-African Americans 53 (> 60)
[2021-11-15 18:35] LABS: Troponin I 0.03 ng/mL (< 0.04)
[2021-11-15 18:44] LABS: Bacteria,Urine Few per hpf (None-Few); Bilirubin,Urine Negative (Negative); Blood,Urine Negative (Negative); Clarity,Urine Clear (Clear); Color,Urine Colorless (Yellow); Glucose,Urine (UA) Normal (Normal); Hyaline Casts,Urine Few per lpf (None Seen); Ketones,Urine Negative (Negative); Leukocyte Esterase,Urine Small (Negative); Mucus,Urine Few per lpf (None-Few); Nitrite,Urine Negative (Negative); Protein,Urine Negative (Neg-Trace); RBC,Urine 0-3 per hpf (0-3); Specific Gravity,Urine 1.006 (1.010-1.025); Squamous Epithelial Cell,Urine Few per hpf (None-Few); Urobilinogen,Urine Normal (Normal)
[2021-11-15] MEDS ORDERED: Magnesium Sulfate 1 GM/102 ML PIGGYBACK IVPB ONE (18:50)
[2021-11-15] MEDS ORDERED: Potassium Chloride Elixir 20 MEQ/15 ML UDC PO ONE (18:50)
[2021-11-15 19:16] LABS: Thyroid Stimulating Hormone 2.718 mcIU/mL (0.340-5.600)
[2021-11-15] MEDS ORDERED: *HR* Heparin 5,000 UNIT/ML VIAL IVP ONE (19:25)
[2021-11-15] MEDS ORDERED: *HR* Heparin 5,000 UNIT/ML VIAL IVP PRN ×2 (19:25)
[2021-11-15] MEDS ORDERED: Heparin 25,000UNIT/250ML 1/2NS 25,000 UNIT/250 ML IV.SOLN IVC SCH (19:30)
[2021-11-15 20:25] LABS: Heparin anti-factor XA UFH < 0.04 IU/mL (0.30-0.70)
[2021-11-15 20:26] LABS: Prothrombin Time 11.5 Seconds (9.4-12.1)
[2021-11-15 20:35] LABS: Influenza A PCR Negative (Negative); Influenza B PCR Negative (Negative); Resp. Syncytial Virus PCR Negative (Negative); SARS-CoV-2 by PCR (In House) Negative (Negative)
[2021-11-15] MEDS ORDERED: Perflutren Lipid Microsphere 1.3 ML in 0.9 % Sodium Chloride 8.7 ML IVP PRN (21:07)
[2021-11-15] MEDS ORDERED: Morphine Sulfate 2 MG/ML SYRINGE IVP PRN (21:09)
[2021-11-15] MEDS ORDERED: *HR* Dextrose 50 % in Water (Syg) 50 ML SYRINGE IVP PRN (21:25)
[2021-11-15] MEDS ORDERED: Dextrose Gel 15 GM/37.5 ML TUBE PO PRN ×2 (21:25)
[2021-11-15] MEDS ORDERED: D5% in Water 1,000 ML IVC PRN (21:25)
[2021-11-15] MEDS ORDERED: Acetaminophen 325 MG TABLET PO PRN (21:30)
[2021-11-15] MEDS ORDERED: Ondansetron 4 MG/2 ML VIAL IVP PRN (21:30)
[2021-11-15] MEDS ORDERED: Naloxone 0.4 MG/ML INJ IVP PRN (21:30)
[2021-11-15] MEDS: cefTRIAXone 1,000 MG in 0.9 % Sodium Chloride Mini Bag 100 ML IVPB SCH (21:47)
[2021-11-15] MEDS: Levalbuterol Neb 1.25 MG/3 ML IH SCH (23:36)
[2021-11-15] MEDS: Budesonide/Formoterol 160/4.5 1 PUFF INH IH SCH (23:36)
[2021-11-16 00:40] LABS: Hematocrit 30.5 % (35.3-44.9); Hemoglobin 9.3 g/dL (11.5-15.4); Mean Corpuscular HGB Conc 30.5 g/dL (31.6-35.5); Mean Corpuscular Hemoglobin 26.9 pg (28.0-33.3); Mean Corpuscular Volume 88.2 fL (83.0-100.0); Mean Platelet Volume 9.9 fL (9.4-12.4); Platelet Count 291 K/mcL (140-400); Red Blood Count 3.46 M/mcL (3.82-4.97); Red Cell Distribution Width 13.5 % (11.5-14.5); White Blood Count 6.8 K/mcL (4.3-11.1)
[2021-11-16 00:57] LABS: BUN/Creatinine Ratio 14 (6-26); Blood Urea Nitrogen 13 mg/dL (8-23); Calcium 8.6 mg/dL (8.6-10.3); Carbon Dioxide 32 mEq/L (23-29); Chloride 100 mEq/L (98-107); Chol/HDL Ratio 1.8 (0-4.9); Cholesterol 135 mg/dL (< 200); Glucose 184 mg/dL (70-105); HDL Cholesterol 76 mg/dL (40-59); LDL Cholesterol,Calculated 48 mg/dL (< 100); Magnesium 2.1 mg/dL (1.6-2.6); Osmolality,Calculated 293 (280-300); Potassium 3.7 mEq/L (3.5-5.1); Sodium 139 mEq/L (136-145); Triglycerides 53 mg/dL (< 150); eGFR For African Americans > 60 (> 60); eGFR For Non-African Americans 57 (> 60)
[2021-11-16 01:01] LABS: Iron 31 mcg/dL (50-170)
[2021-11-16 01:16] LABS: Estimated Average Glucose 154 mg/dl
[2021-11-16 01:25] LABS: Folate 13.8 ng/mL (3.0-16.0); Vitamin B12 > 1500 pg/mL (250-1100)
[2021-11-16 01:32] LABS: % Iron Saturation 10 % (15-50); Transferrin 216 mg/dL (203-362)
[2021-11-16] MEDS: Insulin LISPRO 300 UNITS/3 ML VIAL SUBQ SCH ×5 (01:36→23:51)
[2021-11-16] MEDS: Levalbuterol Neb 1.25 MG/3 ML IH SCH ×4 (04:23→20:05)
[2021-11-16] MEDS ORDERED: Regadenoson 0.4 MG/5 ML SYRINGE IVP ONE (06:08)
[2021-11-16] MEDS: amLODIPine 5 MG TABLET PO SCH (10:22)
[2021-11-16] MEDS: Mirtazapine 15 MG TABLET PO SCH (10:22)
[2021-11-16] MEDS: Aspirin Enteric Coated 81 MG Tablet PO SCH (10:22)
[2021-11-16] MEDS: Cyanocobalamin (B-12) 1,000 MCG TABLET PO SCH (10:23)
[2021-11-16] MEDS: lisinopriL 20 MG TABLET PO SCH (10:23)
[2021-11-16] MEDS: cefTRIAXone 1,000 MG in 0.9 % Sodium Chloride Mini Bag 100 ML IVPB SCH ×2 (10:23→19:48)
[2021-11-16] MEDS: Furosemide 40 MG TABLET PO SCH (10:23)
[2021-11-16] MEDS: Budesonide/Formoterol 160/4.5 1 PUFF INH IH SCH ×2 (11:49→20:05)
[2021-11-16 15:02] LABS: Ferritin 17 ng/mL (10-120)
[2021-11-16] MEDS: *HR* Heparin 5,000 UNIT/ML VIAL SQ SCH (16:12)
[2021-11-17 03:19] LABS: Hematocrit 29.5 % (35.3-44.9); Hemoglobin 9.3 g/dL (11.5-15.4); Mean Corpuscular HGB Conc 31.5 g/dL (31.6-35.5); Mean Corpuscular Hemoglobin 27.6 pg (28.0-33.3); Mean Corpuscular Volume 87.5 fL (83.0-100.0); Mean Platelet Volume 9.8 fL (9.4-12.4); Platelet Count 274 K/mcL (140-400); Red Blood Count 3.37 M/mcL (3.82-4.97); Red Cell Distribution Width 13.7 % (11.5-14.5); White Blood Count 6.7 K/mcL (4.3-11.1)
[2021-11-17 03:40] LABS: BUN/Creatinine Ratio 13 (6-26); Blood Urea Nitrogen 12 mg/dL (8-23); Calcium 8.8 mg/dL (8.6-10.3); Carbon Dioxide 35 mEq/L (23-29); Chloride 99 mEq/L (98-107); Glucose 130 mg/dL (70-105); Osmolality,Calculated 282 (280-300); Potassium 3.7 mEq/L (3.5-5.1); Sodium 135 mEq/L (136-145); eGFR For African Americans > 60 (> 60); eGFR For Non-African Americans 56 (> 60)
[2021-11-17] MEDS: Levalbuterol Neb 1.25 MG/3 ML IH SCH ×4 (04:23→19:41)
[2021-11-17] MEDS: *HR* Heparin 5,000 UNIT/ML VIAL SQ SCH ×2 (05:55→17:25)
[2021-11-17] MEDS: Insulin LISPRO 300 UNITS/3 ML VIAL SUBQ SCH ×4 (05:55→17:25)
[2021-11-17] MEDS ORDERED: Dextrose Gel 15 GM/37.5 ML TUBE PO PRN ×2 (05:56)
[2021-11-17] MEDS ORDERED: *HR* Dextrose 50 % in Water (Syg) 50 ML SYRINGE IVP PRN (05:56)
[2021-11-17] MEDS ORDERED: D5% in Water 1,000 ML IVC PRN (05:56)
[2021-11-17] MEDS: Budesonide/Formoterol 160/4.5 1 PUFF INH IH SCH ×2 (08:52→19:41)
[2021-11-17] MEDS: Mirtazapine 15 MG TABLET PO SCH (09:04)
[2021-11-17] MEDS: amLODIPine 5 MG TABLET PO SCH (09:05)
[2021-11-17] MEDS: Aspirin Enteric Coated 81 MG Tablet PO SCH (09:05)
[2021-11-17] MEDS: Furosemide 40 MG TABLET PO SCH (09:05)
[2021-11-17] MEDS: cefTRIAXone 1,000 MG in 0.9 % Sodium Chloride Mini Bag 100 ML IVPB SCH (09:05)
[2021-11-17] MEDS: Cyanocobalamin (B-12) 1,000 MCG TABLET PO SCH (09:05)
[2021-11-17] MEDS: lisinopriL 20 MG TABLET PO SCH (09:05)
[2021-11-17] MEDS: Metoprolol XL (24 HR) Succ 25 MG TAB.ER.24H PO SCH (22:00)
[2021-11-18] MEDS: Levalbuterol Neb 1.25 MG/3 ML IH SCH ×2 (04:05→08:05)
[2021-11-18] MEDS: *HR* Heparin 5,000 UNIT/ML VIAL SQ SCH (06:35)
[2021-11-18 07:31] VITALS: BP 146/72; PULSE 65; TEMP 97.4
[2021-11-18] MEDS: Insulin LISPRO 300 UNITS/3 ML VIAL SUBQ SCH (07:42)
[2021-11-18] MEDS: Budesonide/Formoterol 160/4.5 1 PUFF INH IH SCH (08:06)
[2021-11-18 08:07] VITALS: O2SAT 98
[2021-11-18] MEDS: Cyanocobalamin (B-12) 1,000 MCG TABLET PO SCH (08:34)
[2021-11-18] MEDS: Mirtazapine 15 MG TABLET PO SCH (08:34)
[2021-11-18] MEDS: Metoprolol XL (24 HR) Succ 25 MG TAB.ER.24H PO SCH (08:34)
[2021-11-18] MEDS: amLODIPine 5 MG TABLET PO SCH (08:34)
[2021-11-18] MEDS: Furosemide 40 MG TABLET PO SCH (08:34)
[2021-11-18] MEDS: Aspirin Enteric Coated 81 MG Tablet PO SCH (08:34)
[2021-11-18] MEDS: lisinopriL 20 MG TABLET PO SCH (08:34)
[2021-11-18] MEDS ORDERED: cefTRIAXone 1,000 MG in 0.9 % Sodium Chloride Mini Bag 100 ML IVPB SCH (09:00)
== END 2021-11-18 10:55 | disposition home or self-care (01) ==
LOC: EMEROOARM 17:09 → 3BNU 17:09 → SUATTDRO 20:22 → 3BNU 21:11
PROVIDERS: ADMIT Internal Medicine; ATTEND Internal Medicine